=== PATIENT | male | born 1990 | race Caucasian/White ===

== ENCOUNTER 2016-05-06 13:03 | Emergency (ER) | payer OTHER ==
[~2016-05-06 13:03] MED LIST: AMOXICILLIN500 M1 PO; BACTRIM DS TABL1 TA2 PO; DICLOFENAC PO; DOXYCYCLINE PO; KEFLEX500 M2 PO; LORTAB 5/500 TA1 TA1 PO; LOTRIMIN 1% CR30 GM EXT; MOBIC PO; NAPROXEN PO; NO MEDICATIONS; PHENERGAN PO; TYLENOL #3 PO; ULTRAM PO; VOLTAREN75 MG PO
== END 2016-05-06 14:48 | disposition home or self-care (01) ==
LOC: CED 13:03
DX: F11.10 Opioid abuse, uncomplicated (principal); F17.200 Nicotine dependence, unspecified, uncomplicated
CPT/HCPCS: 99282